=== PATIENT | female | born 1985 | race Caucasian/White ===

== ENCOUNTER → 2017-08-10 | Outpatient (CLI) | payer MEDICAID ==
--- NOTE | 2017-08-14 18:50 | CPEEG ---
[f rep st] ELECTROENCEPHALOGRAM 4-HOUR ELECTROENCEPHALOGRAM. DATE OF STUDY: 08/14/2017 DATE OF INTERPRETATION: 08/14/2017. INTERPRETATION: This 4-hour video EEG recording contains rare generalized atypical spike and wave discharges. 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 There were no clinical events recorded during the video EEG monitoring session. REPORT: This 4-hour video EEG contains 10 Hz alpha activity to the posterior head regions. There was no abnormal activation at rest or hyperventilation. During photic stimulation at 18 Hz there was activation of generalized spike and wave discharge (photoparoxysmal response). The patient became drowsy and fell into sustained sleep during the study. During sleep, there were rare generalized atypical spike and wave discharges (see epoch 795 for example). The patient did not have any clinical events during the video EEG monitoring session. /[id number]/MODL MTDD
== END ==
LOC: FCPNEURO 08:15
PROVIDERS: ATTEND Psychiatry & Neurology Neurology
DX: G40.909 Epilepsy, unspecified, not intractable, without status epilepticus (principal)